=== PATIENT | female | born 1965 | race Hispanic/Latino ===

== ENCOUNTER → 2018-08-26 | Day surgery (SDC) | payer BC ==
[~2018-08-26] MED LIST: FENTANYL CITRATE/PF 100MCG/2 ML INJ ONE; HYOSCYAMINE SULFATE 0.5 MG/ML INJ ONE; MIDAZOLAM HCL 2 MG/2 ML VIAL ONE; PROPOFOL IV EMULSION 10 MG/ML 20 ML VIAL ONE; PROPOFOL IV EMULSION 10 MG/ML 50 ML VIAL ONE; TYLENOL PO
[2018-08-26 16:00] VITALS: BP 125/85
--- NOTE | 2018-08-26 16:01 | Operative Report ---
DATE OF PROCEDURE: 08/26/2018 SURGEON: Pete Mendes MD PROCEDURE: Colonoscopy and polypectomy. REFERRING PHYSICIAN: Dr. Armijo, oncologist at [facility]. INDICATIONS FOR COLONOSCOPY: Colorectal cancer screening, family history of colon cancer. MEDICATIONS: The patient was done under MAC, please see anesthesiologist's note. PROCEDURE IN DETAIL: With the patient in left lateral decubitus position, flexible fiberoptic Olympus colonoscope was inserted into the rectum with ease and advanced all the way to the cecum. The scope was then withdrawn slowly and mucosa overlying the cecum, ascending colon, transverse, descending, and sigmoid other than for scattered diverticular disease appeared to be within normal limits. Three minute polyps were hot biopsied from the rectosigmoid area. The scope was then retroflexed into the distal rectum and small internal hemorrhoids were noted, none of which was actively bleeding. The scope was then straightened out and it was subsequently withdrawn. The patient tolerated procedure well. IMPRESSION: 1. Diverticulosis. 2. Polyps, rectosigmoid area, x3, hot biopsied. 3. Internal hemorrhoids, none actively bleeding. PLAN: Follow up histology. Initiate high-fiber, low-fat diet. Initiate high-fiber supplement. The patient might benefit from a followup colonoscopy in 3 years. Pete Mendes MD [facility] [place] /[id number] cc: Dr. Armijo, Oncology, [facility]
--- OUTSIDE RECORDS SUMMARY | 2018-08-28 15:49 | XMS REPORT ---
Author [facility] Address Unknown Phone Unavailable Care Team Providers Care Recruiting And Selection Consultant Name Role Phone Unavailable Unavailable Problems This patient has no known problems. Allergies, Adverse Reactions, Alerts This patient has no known allergies or adverse reactions. Medications This patient has no known medications. Encounters Start Date/Time End Date/Time Encounter Type Admission Type Attending [facility] Care Department Encounter ID 2018-09-27 00:00:00 Inpatient [facility] [id number] 2018-05-24 09:06:41 Inpatient [facility] [id number] 2017-02-13 20:16:13 Inpatient [facility] [id number] 2017-02-11 12:39:50 Inpatient [facility] [id number] 2017-02-11 11:15:03 Inpatient [facility] [id number] 2017-02-11 07:59:44 Inpatient [facility] [id number] 2017-02-11 05:30:00 Inpatient [facility] [id number] 2017-02-11 00:00:00 Inpatient [facility] [id number] 2017-02-02 00:00:00 Inpatient [facility] [id number] 2018-09-14 00:00:00 2018-09-14 00:00:00 Outpatient [facility] [id number] 2017-05-05 00:00:00 2017-05-05 00:00:00 Outpatient [facility] [id number] 2017-04-20 00:00:00 2017-04-20 00:00:00 Outpatient [facility] [id number] 2017-04-13 00:00:00 2017-04-13 00:00:00 Outpatient [facility] [id number] 2017-04-13 00:00:00 2017-04-13 00:00:00 Outpatient [facility] [id number] 2017-04-08 00:00:00 2017-04-08 00:00:00 Outpatient [facility] [id number] 2017-04-07 00:00:00 2017-04-07 00:00:00 Outpatient [facility] [id number] 2017-03-30 00:00:00 2017-03-30 00:00:00 Outpatient [facility] [id number] 2017-03-23 13:13:42 2017-03-23 13:13:42 Outpatient [facility] [id number] 2017-03-23 10:58:30 2017-03-23 10:58:30 Outpatient [facility] [id number] 2017-03-23 10:06:31 2017-03-23 10:06:31 Outpatient [facility] [id number] 2017-03-23 09:38:58 2017-03-23 09:38:58 Outpatient [facility] [id number] 2017-03-16 10:49:02 2017-03-16 10:49:02 Outpatient [facility] [id number] 2017-03-09 10:38:22 2017-03-09 10:38:22 Outpatient [facility] [id number] 2017-02-28 11:15:38 2017-02-28 11:15:38 Outpatient [facility] [id number] 2017-02-23 12:09:24 2017-02-23 12:09:24 Outpatient [facility] [id number] 2017-02-22 11:14:32 2017-02-22 11:14:32 Outpatient [facility] [id number] 2017-02-02 12:45:56 2017-02-02 12:45:56 Outpatient [facility] [id number] 2017-02-02 10:10:18 2017-02-02 10:10:18 Outpatient [facility] [id number] 2017-01-26 11:34:24 2017-01-26 11:34:24 Outpatient [facility] [id number] 2017-01-19 00:00:00 2017-01-19 00:00:00 Outpatient [facility] [id number] 2017-01-19 00:00:00 2017-01-19 00:00:00 Outpatient [facility] [id number] 2017-01-19 00:00:00 2017-01-19 00:00:00 Outpatient [facility] [id number] 2017-01-17 10:45:13 2017-01-17 10:45:13 Outpatient [facility] [id number] 2017-01-17 10:42:44 2017-01-17 10:42:44 Outpatient [facility] [id number] 2017-01-17 08:43:15 2017-01-17 08:43:15 Outpatient [facility] [id number] 2017-01-12 00:00:00 2017-01-12 00:00:00 Outpatient [facility] [id number] 2017-01-12 00:00:00 2017-01-12 00:00:00 Outpatient [facility] [id number] 2017-01-05 00:00:00 2017-01-05 00:00:00 Outpatient [facility] [id number] 2016-12-27 00:00:00 2016-12-27 00:00:00 Outpatient [facility] [id number] 2016-12-24 00:00:00 2016-12-24 00:00:00 Outpatient [facility] [id number] 2016-12-22 14:10:43 2016-12-22 14:10:43 Outpatient [facility] [id number] 2016-12-22 11:51:52 2016-12-22 11:51:52 Outpatient [facility] [id number] 2016-12-15 15:39:00 2016-12-15 15:39:00 Outpatient [facility] [id number] 2016-12-14 10:47:46 2016-12-14 10:47:46 Outpatient [facility] [id number] 2016-12-14 07:52:36 2016-12-14 07:52:36 Outpatient [facility] [id number] 2016-11-24 12:37:47 2016-11-24 12:37:47 Outpatient [facility] [id number] 2016-11-24 11:50:26 2016-11-24 11:50:26 Outpatient [facility] [id number] 2016-11-18 16:20:00 2016-11-18 16:20:00 Outpatient [facility] [id number] 2016-11-17 16:23:00 2016-11-17 16:23:00 Outpatient [facility] [id number] 2016-11-16 16:13:00 2016-11-16 16:13:00 Outpatient [facility] [id number] 2016-11-16 15:27:00 2016-11-16 15:27:00 Outpatient [facility] [id number] 2016-11-15 16:24:00 2016-11-15 16:24:00 Outpatient [facility] [id number] 2016-11-12 16:47:00 2016-11-12 16:47:00 Outpatient [facility] [id number] 2016-11-12 15:35:00 2016-11-12 15:35:00 Outpatient [facility] [id number] 2016-11-11 16:24:00 2016-11-11 16:24:00 Outpatient [facility] [id number] 2016-11-10 15:34:00 2016-11-10 15:34:00 Outpatient [facility] [id number] 2016-11-10 00:00:00 2016-11-10 00:00:00 Outpatient [facility] [id number] 2016-11-08 18:31:00 2016-11-08 18:31:00 Outpatient [facility] [id number] 2016-11-05 07:22:00 2016-11-05 07:22:00 Outpatient [facility] [id number] 2016-11-04 16:43:00 2016-11-04 16:43:00 Outpatient [facility] [id number] 2016-11-03 16:54:00 2016-11-03 16:54:00 Outpatient [facility] [id number] 2016-11-02 16:10:00 2016-11-02 16:10:00 Outpatient [facility] [id number] 2016-11-02 15:43:00 2016-11-02 15:43:00 Outpatient [facility] [id number] 2016-11-01 17:48:00 2016-11-01 17:48:00 Outpatient [facility] [id number] 2016-10-29 18:32:00 2016-10-29 18:32:00 Outpatient [facility] [id number] 2016-10-28 18:39:00 2016-10-28 18:39:00 Outpatient [facility] [id number] 2016-10-27 19:19:00 2016-10-27 19:19:00 Outpatient [facility] [id number] 2016-10-26 13:47:00 2016-10-26 13:47:00 Outpatient [facility] [id number] 2016-10-26 13:22:00 2016-10-26 13:22:00 Outpatient [facility] [id number] 2016-10-25 15:16:00 2016-10-25 15:16:00 Outpatient [facility] [id number] 2016-10-25 13:26:00 2016-10-25 13:26:00 [facility] [id number] 2016-10-13 09:55:51 2016-10-13 09:55:51 [facility] [id number] 2016-10-08 11:27:00 2016-10-08 11:27:00 Outpatient [facility] [id number] 2016-10-08 09:09:00 2016-10-08 09:09:00 Outpatient [facility] [id number] 2016-10-06 12:54:00 2016-10-06 12:54:00 Outpatient [facility] [id number] 2016-09-29 10:04:28 2016-09-29 10:04:28 Outpatient [facility] [id number] 2016-09-29 07:11:11 2016-09-29 07:11:11 Outpatient [facility] [id number] 2016-08-18 00:00:00 2016-08-18 00:00:00 Outpatient [facility] [id number]
--- OUTSIDE RECORDS SUMMARY | 2018-08-28 15:49 | XMS REPORT | Clinical Summary ---
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 Active simethicone (MYLICON) 80 Take 1-2 30 tablet 1 mg chewable tablets every 7 tabletIndications: 6 hours as Abdominal cramping needed for abdominal cramps or gas.. Active fluticasone (FLONASE) 50 Use 1 [place] 16 g 1 mcg/actuation nasal in each 7 sprayIndications: nostril Seasonal allergic daily. rhinitis, unspecified allergic rhinitis trigger Active 1 mL diphenhydrAMINE Take 5 mL by 250 mL 1 syrup-1 mL lidocaine mouth 4 times 7 mucosal solution-1 mL daily. nystatin oral suspension (Compounded oral at [facility]) s: DLBCL (diffuse large B cell lymphoma) Active acetaminophen (TYLENOL) Take 650 mg 0 325 mg tablet by mouth every 6 hours as needed for Pain. Active acetaminophen-codeine Take 1 tablet 60 tablet 0 (TYLENOL/CODEINE #3) by mouth 7 300-30 mg per every 4 hours tabletIndications: Acute as needed for pain of right knee, DLBCL Pain. (diffuse large B cell lymphoma) Active aspirin 325 mg tablet Take 1 tablet 0 by mouth 2 7 times daily. Active HYDROcodone-acetaminophen Take 1 tablet 45 tablet 0 (NORCO) 7.5-325 mg tablet by mouth 7 every 6 hours as needed for Pain. Active traMADol (ULTRAM) 50 mg Take 1 tablet 30 tablet 0 tabletIndications: by mouth 7 Pathological fracture of every 6 hours right femur due to as needed for neoplastic disease with Pain. routine healing, subsequent encounter 02/17/2018 dexlansoprazole Take 1 30 capsule 1 (DEXILANT) 30 mg delayed capsule by 8 release mouth daily capsuleIndications: for 44 days Dyspepsia Please take only after you submit your stool sample.. Active Problems Problem Noted Date Chronic pain of right knee 02/22/2017 Impaired mobility and ADLs 02/22/2017 Pathologic fracture of femur 02/11/2017 S/P total knee arthroplasty 02/11/2017 Pathologic fracture 01/17/2017 Overview: Added automatically from request for surgery [id number] Pain in right femur 09/02/2016 Neutropenic fever 08/12/2016 Adult BMI > 30 07/14/2016 Overweight (BMI 25.0-29.9) 07/14/2016 DVT prophylaxis 05/30/2016 DLBCL (diffuse large B cell lymphoma) 02/25/2016 Cancer Staging: Clinical stage from 02/25/2016: Stage IV (E - Extranodal) - Signed by Jennifer Hamilton MD on 02/25/2016 Overview: Diagnosis: Stage IV DLBCL with extranodal involvement of right femur, GCB type (BCL2+, BCL6+), no myc-c rearrangement Date of Diagnosis: 02/10/16 Current Treatment: None Language Spoken: Nauruan ONCOLOGIC HISTORY: - 09/2015: developed pain in her right knee that progressed with swelling over several months - 01/07/16: Fell at work and MRI of right knee ordered under workman's comp showed ill-defined lesion involving the right distal femur metaphysis suspicious for malignancy. She was referred to [facility] Suspicion of Cancer clinic. - 01/09/16: Xray right hip/femur- No acute fracture or malalignment in the right hip, femur or knee.Tiny lytic lesions in the distal femoral shaft in a permeative pattern with mild periosteal reaction at the mid and distal femur are concerning for malignancy. Small right knee joint effusion. - 01/21/16: Quantiferon gold positive - 01/28/16: CXR negative - 02/10/16: Bone biopsy showed diffuse large B-cell lymphoma with high proliferation index (Ki 67 90-95%). tumor cells are positive for CD20, CD79a, CD10 (subset), Bcl-6, Bcl-2, and they are negative for CD3, CD21, CD43, CD34, CD138, MUM-1, E-cadherin, MPO, cyclin D1. Currie and Lambda IHC is positive in scattered cells and polytypic. IGH/BCL2 translocation was detected on FISH. No evidence of an IGH/MYC translocation - 02/12/16: MRI right femur which showed a large mass (measuring 8.9 x 9.1 x 24.5 cm) with necrosis and hemorrhage involving entire femoral shaft from proximal 1/3 of femoral diaphysis to femoral condyles with progression of cortical breakthrough and muscle invasion adductor giuliano muscle and questionably within the short head of the biceps femoris. - 02/24/16: PET CT showed hypermetabolic subcm right inguinal and iliac chain lymph node (max SUV 7.1), mesocolic LN, and right femoral LN 2.1 cm with SUV 22.8. as well as right distal femoral FDG avid lesion with cortical breakthrough and surrounding FDG avid soft tissue component has SUV max 37.5. - 02/25/16: LDH 370, uric acid 4.7, HIV negative - 02/27/16: ECHO EF 60-64% - 03/03/16: D1C1 DA-R-EPOCH; tolerated well Right knee pain 01/21/2016 (QFT) QuantiFERON-TB test reaction without active tuberculosis No contraindication to deep vein thrombosis (DVT) prophylaxis Lytic bone lesions on xray TB lung, latent Cancer related pain Drug-induced polyneuropathy Cough Allergic rhinitis Right ear pain Pancytopenia Pathological fracture of right femur in neoplastic disease Post-op pain Encounters Care Team Description Date Type Specialty Christian Armijo, Fellow() Diffuse large B-cell lymphoma, unspecified body region (Primary Dx) 05/24/2018 Office Visit Oncology Christian Armijo, Fellow() Diffuse large B-cell lymphoma, unspecified body region 05/19/2018 Hospital Radiology Encounter 05/19/2018 Travel Christian Armijo, Fellow() Diffuse large B-cell lymphoma, unspecified body region 05/05/2018 Hospital Lab Encounter 05/05/2018 Travel Lorena Vaughn PA Pathological fracture of right femur due to neoplastic disease with malunion, subsequent encounter; Status post total right knee replacement 02/20/2018 Hospital Radiology Encounter Renny Yanes MD Pathological fracture of right femur due to neoplastic disease with malunion, subsequent encounter (Primary Dx); Status post total right knee replacement 02/20/2018 Office Visit Orthopedics Lorena Vaughn PA Left without seen 01/25/2018 Hospital Lab Encounter Bertha Ron, Fellow() Diffuse large B-cell lymphoma of lymph nodes of lower extremity 01/25/2018 Orders Only Oncology Hugo Oconnor MD Dyspepsia (Primary Dx) 01/04/2018 Office Visit Gastroenterology Bertha Ron, Fellow() Christian Armijo Fellow() Diffuse large B-cell lymphoma, unspecified body region (Primary Dx) 11/16/2017 Office Visit Oncology Bertha Ron, Fellow() Diffuse large B-cell lymphoma of lymph nodes of lower extremity 11/02/2017 Hospital Radiology Encounter Bertha Ron, Fellow() Diffuse large B-cell lymphoma of lymph nodes of lower extremity 10/10/2017 Hospital Lab Encounter Lorena Vaughn PA 08/31/2017 Ancillary Radiology Procedure after 08/27/2017 Immunizations Name Dates Previously Given Next Due Influenza <Unspecified> 02/21/2017 Influenza Vaccine 07/31/2016 (Deferred: Patient Refused) Pegfilgrastim (Neulasta) 03/09/2016 Injection Pneumococcal 13-valent 07/31/2016 (Deferred: Patient Refused) conj 0.5 mL injection Family History Medical History Relation Name Comments Breast cancer Brother Colon cancer Other cousin Breast cancer Paternal Aunt age 40 Breast cancer Paternal Aunt age 50 Breast cancer Sister age 28 Breast cancer Sister age 31 Relation Name Status Comments Brother Other cousin Paternal Aunt age 40 Alive Paternal Aunt age 50 Sister age 28 Sister age 31 Social History Date Tobacco Use Types Packs/Day Years Used Never Smoker Smokeless Tobacco: Never Used Tobacco Cessation: Counseling Given: Yes Alcohol Use Drinks/Week oz/Week Comments No Sex Assigned at Date Recorded Not on file Industry Job Start Date Occupation Not on file Not on file Not on file Travel End Travel History Travel Start No recent travel history available. Last Filed Vital Signs Time Taken Vital Sign Reading 05/24/2018 9:24 AM CONTENT STRATEGIST Blood Pressure 124/75 05/24/2018 9:24 AM CONTENT STRATEGIST Pulse 85 05/24/2018 9:24 AM CONTENT STRATEGIST Temperature 36.6 C (97.8 F) 05/24/2018 9:24 AM CONTENT STRATEGIST Respiratory Rate 18 - Oxygen Saturation - - Inhaled Oxygen - Concentration 05/24/2018 9:24 AM CONTENT STRATEGIST Weight 110.7 kg (244 lb) 05/24/2018 9:24 AM CONTENT STRATEGIST Height 161.5 cm (5' 3.6") 05/24/2018 9:24 AM CONTENT STRATEGIST Body Mass Index 42.41 Plan of Treatment Care Team Description Date Type Specialty referral#[id number]..BCBS 09/14/2018 Office Visit Pulmonology Christian Armijo, Fellow() [address] [id number] 09/27/2018 Office Visit Oncology Health Maintenance Due Date Last Done Comments Cervical Cancer Scrn (3 07/21/2018 07/22/2015 (Previously completed - Yrs) External) Colorectal Cancer Scrn 07/25/2018 07/25/2017 Annual (FIT/FOBT) Age 50 to 75 Breast Cancer Scrn 08/31/2018 08/31/2017 (Yearly) IMM Influenza Seasonal 02/06/2019 02/21/2017Feb to July (>/=19 yrs) Implants Device Identifier Shelf Expiration Date Model / Serial / Lot Implanted Type Area Manufactur er 02/02/2021 [id number] / / [id number] Port-A-Cath Ii Power P.A.C. Low Chest Profile Implanted: Qty: 1 on 07/19/2016 by Hanny Haddad MD 12/30/2021 6495-2-020 / / [id number] [employer] Distal Femoral Component Right: Femur(s) ELANA Implanted: Qty: 1 on 02/11/2017 by Mega Oliver Sr., MD CS - DIV STR 01/16/2021 6495-6-040 / / [id number] Gm[employer] Extension Piece Right: Femur(s) ELANA Implanted: Qty: 1 on 02/11/2017 by Mega Oliver Sr. CS - DIV STR 06/29/2021 6481-2-140 / / [id number] [facility] Knee Tibial Sleeve Right: Femur(s) ELANA Implanted: Qty: 1 on 02/11/2017 by Mega Oliver Sr., MD CS - DIV STR 09/03/2021 6481-2-100 / / [id number] [facility] Tibial Rotating Component Right: Femur(s) ELANA Implanted: Qty: 1 on 02/11/2017 by Mega Oliver Sr., MD CS - DIV STR 10/14/2021 6485-3-113 / / [id number] Mrs Straight Cemented Stem Right: Femur(s) ELANA Implanted: Qty: 1 on 02/11/2017 by Mega Oliver Sr., MD CS - DIV STR 02/05/2018 [id number] / / [id number] Simplex P With Tobramycin Right: Femur(s) ELANA Antibiotic Bone Cement ORTHOPAEDI Implanted: Qty: 1 on 02/11/2017 by CS - DIV Mega Ordaz Sr., MD STR 10/07/2021 6495-2-105 / / [id number] [place] For Small Distal Femur Right: Femur(s) ELANA Implanted: Qty: 2 on 02/11/2017 by Mega Oliver Sr., MD CS - DIV STR 12/19/2021 6481-3-111 / / [id number] [facility] Knee Tibial Baseplate Right: Femur(s) ELANA Implanted: Qty: 1 on 02/11/2017 by Mega Oliver Sr., MD CS - DIV STR 12/14/2021 6481-3-210 / / [id number] [facility] Knee Tibial Insert Right: Femur(s) ELANA Implanted: Qty: 1 on 02/11/2017 by Mega Oliver Sr., MD CS - DIV STR 07/01/2021 6478-6-405 / / [id number] Joaquin Chrome Sten Right: Femur(s) ELANA Implanted: Qty: 1 on 02/11/2017 by Mega Oliver Sr., MD CS - DIV STR 06/22/2021 [id number] / / [id number] Tri[employer]lon X3 Asymmetric Patella Right: Femur(s) ELANA Implanted: Qty: 1 on 02/11/2017 by Mega Oliver Sr., MD CS - DIV STR 11/16/2021 6495-2-115 / / [id number] [employer] Axle Right: Femur(s) ELANA Implanted: Qty: 1 on 02/11/2017 by Mega Oliver Sr., MD CS - DIV STR 06/30/2021 6481-2-130 / / [id number] [facility] Knee Bumper Insert Right: Femur(s) ELANA Implanted: Qty: 1 on 02/11/2017 by Mega Oliver Sr., CS - DIV STR Procedures Comments Procedure Name Priority Date/Time Associated Diagnosis CT ABDOMEN AND PELVIS Today 05/19/2018 Diffuse large B-cell CONTRAST 5:28 PM CONTENT STRATEGIST lymphoma, unspecified body region CT CHEST W CONTRAST Today 05/19/2018 Diffuse large B-cell 5:28 PM CONTENT STRATEGIST lymphoma, unspecified body region LIVER PROFILE Routine 05/05/2018 Diffuse large B-cell 3:46 PM CONTENT STRATEGIST lymphoma, unspecified body region BASIC METABOLIC PANEL Routine 05/05/2018 Diffuse large B-cell 3:46 PM CONTENT STRATEGIST lymphoma, unspecified body region CBC/DIFF Routine 05/05/2018 Diffuse large B-cell 3:46 PM CONTENT STRATEGIST lymphoma, unspecified body region XRAY KNEE 4 OR MORE VIEWS Routine 02/20/2018 Pathological fracture of (ROUTINE W/ WT BEARIN:30 PM CDT right femur due to AP/PA/LAT/SUN) neoplastic disease with malunion, subsequent encounter Status post total right knee replacement XRAY FEMUR 2 VIEWS Routine 02/20/2018 Pathological fracture of 3:30 PM CDT right femur due to neoplastic disease with malunion, subsequent encounter Status post total right knee replacement H. PYLORI STOOL AG Routine 01/25/2018 2:[address] ABDOMEN AND PELVIS Routine 11/02/2017 Diffuse large B-cell CONTRAST 10:49 AM CDT lymphoma of lymph nodes of lower extremity CT CHEST W CONTRAST Routine 11/02/2017 Diffuse large B-cell 10:49 AM CDT lymphoma of lymph nodes of lower extremity BASIC METABOLIC PANEL Routine 10/10/2017 Diffuse large B-cell 8:21 AM CDT lymphoma of lymph nodes of lower extremity MAMMOGRAM BILAT SCREEN Routine 08/31/2017 Breast cancer screening DIGITAL 4:33 PM CDT after 08/27/2017 Results * CT ABDOMEN AND PELVIS CONTRAST (05/19/2018 5:28 PM CONTENT STRATEGIST) Only the most recent of 2 results within the time period is included. Addenda Addendum by Luigi Hernandez MD on 05/22/2018 11:46 AM Addendum 05/12/2018 at 1145 hours. Impression: 5. Dilated thecal sac at the level of the sacrum consistent with dural ectasia, a non specific finding. Signed By: Luigi Hernandez MD, 05/22/2018 11:46 AM Impressions Performed At IMPRESSION: SMS 1.2 right stable inguinal lymph nodes measuring up to 1 cm. The larger 1 cm lymph node previously demonstrated FDG uptake on the PET/CT from 04/13/2017. 2.Multiple scattered bilateral pulmonary nodules all of which are stable. Continued follow-up. 3.Stable right thyroid hypodense nodule. 4.Stable small left adrenal nodule. Signed By: Luigi Hernandez MD, 05/22/2018 10:43 AM Narrative Performed At EXAM: CT CHEST WITH CONTRAST [facility] EXAM: CT ABDOMEN AND PELVIS WITH CONTRAST DATE: 05/19/2018 5:30 PM INDICATION: History of DLBCL. Diffuse large B-cell lymphoma, unspecified body region ADDITIONAL INFORMATION: None. COMPARISON: CT chest abdomen pelvis 10/27/2017. TECHNIQUE: Chest ,abdomen and pelvis volumetric CT data set was acquired and axial, coronal, and sagittal series were reconstructed. Postcontrast phases: Portal Venous IV contrast: Omnipaque 300, 97 mL Enteric contrast: None. DLP:2028 mGy cm FINDINGS: Lines, tubes and hardware: None. Lower neck:There is a stable right inferior pole thyroid hypodensity measuring approximately 1.5 x 1.2 cm. No supraclavicular adenopathy is seen. Axilla: Clear. Airway: Patent. Lungs and pleura: 1. Right upper lobe subpleural 0.2 cm nodule, series 405, image 32 stable. 2. Right upper lobe peripheral 0.2 cm nodule on series 405, image 57. Stable. 3. 0.2 cm subpleural right lower lobe nodule that is stable since the prior study, series 405, image 67. 4. Subpleural 0.3 cm nodule, series 45 image 72 that is stable. 5. Right lower lobe posterior medial 0.2 cm stable nodule series 405, image 72. 6. Left lower lobe subpleural 0.3 cm pulmonary nodule that is stable. 7. Left lower lobe posterior medial 0.3 cm nodule series 405, image 62 that is stable. 8. 2 subpleural left lower lobe nodules that are stable measuring 0.2-0.3 cm. Mediastinum, aretha and intrathoracic lymph nodes: Normal. Heart, pericardium and great vessels: Unremarkable. Liver: Measures 17.6 cm in length and is mildly enlarged. Biliary tree: No intra- or extrahepatic biliary ductal dilation. Gallbladder: Surgically absent. Pancreas: Normal. Spleen: Normal. Adrenals: Right adrenal is normal. There is a small 0.8 cm left adrenal nodule.. Kidneys and ureters: Right renal superior pole 1.4 cm well-circumscribed fluid density stable cyst. The left kidney is normal. Bladder: Normal. Reproductive Tract: Normal. Gastrointestinal tract: Stomach: Normal. Small bowel: Normal. Colon: Normal. Appendix: Normal. Peritoneum, mesentery and retroperitoneum: No free air, ascites, loculated fluid or masses. Lymph nodes: 2 right stable when lymph nodes, the larger one measuring up to 1 cm. Arteries: Aorta, common iliac, mesenteric arteries are patent. Veins: Unremarkable. Portal Vein:Patent... Bones: No acute abnormality. There is dural ectasia of the sacrum from S1-S1 secondary to fluid density 6.1 x 2.0 cm structure. Soft tissues:There is a small fat-containing umbilical hernia of uncertain clinical significance. Procedure Note Interface, Rad/Mammog In - 05/22/2018 10:48 AM CONTENT STRATEGIST EXAM: CT CHEST WITH CONTRAST EXAM: CT ABDOMEN AND PELVIS WITH CONTRAST DATE: 05/19/2018 5:30 PM INDICATION: History of DLBCL. Diffuse large B-cell lymphoma, unspecified body region ADDITIONAL INFORMATION: None. COMPARISON: CT chest abdomen pelvis 10/27/2017. TECHNIQUE: Chest ,abdomen and pelvis volumetric CT data set was acquired and axial, coronal, and sagittal series were reconstructed. Postcontrast phases: Portal Venous IV contrast: Omnipaque 300, 97 mL Enteric contrast: None. DLP: 2028 mGy cm FINDINGS: Lines, tubes and hardware: None. Lower neck: There is a stable right inferior pole thyroid hypodensity measuring approximately 1.5 x 1.2 cm. No supraclavicular adenopathy is seen. Axilla: Clear. Airway: Patent. Lungs and pleura: 1. Right upper lobe subpleural 0.2 cm nodule, series 405, image 32 stable. 2. Right upper lobe peripheral 0.2 cm nodule on series 405, image 57. Stable. 3. 0.2 cm subpleural right lower lobe nodule that is stable since the prior study, series 405, image 67. 4. Subpleural 0.3 cm nodule, series 45 image 72 that is stable. 5. Right lower lobe posterior medial 0.2 cm stable nodule series 405, image 72. 6. Left lower lobe subpleural 0.3 cm pulmonary nodule that is stable. 7. Left lower lobe posterior medial 0.3 cm nodule series 405, image 62 that is stable. 8. 2 subpleural left lower lobe nodules that are stable measuring 0.2-0.3 cm. Mediastinum, aretha and intrathoracic lymph nodes: Normal. Heart, pericardium and great vessels: Unremarkable. Liver: Measures 17.6 cm in length and is mildly enlarged. Biliary tree: No intra- or extrahepatic biliary ductal dilation. Gallbladder: Surgically absent. Pancreas: Normal. Spleen: Normal. Adrenals: Right adrenal is normal. There is a small 0.8 cm left adrenal nodule.. Kidneys and ureters: Right renal superior pole 1.4 cm well-circumscribed fluid density stable cyst. The left kidney is normal. Bladder: Normal. Reproductive Tract: Normal. Gastrointestinal tract: Stomach: Normal. Small bowel: Normal. Colon: Normal. Appendix: Normal. Peritoneum, mesentery and retroperitoneum: No free air, ascites, loculated fluid or masses. Lymph nodes: 2 right stable when lymph nodes, the larger one measuring up to 1 cm. Arteries: Aorta, common iliac, mesenteric arteries are patent. Veins: Unremarkable. Portal Vein: Patent... Bones: No acute abnormality. There is dural ectasia of the sacrum from S1-S1 secondary to fluid density 6.1 x 2.0 cm structure. Soft tissues: There is a small fat-containing umbilical hernia of uncertain clinical significance. IMPRESSION IMPRESSION: 1. 2 right stable inguinal lymph nodes measuring up to 1 cm. The larger 1 cm lymph node previously demonstrated FDG uptake on the PET/CT from 04/13/2017. 2. Multiple scattered bilateral pulmonary nodules all of which are stable. Continued follow-up. 3. Stable right thyroid hypodense nodule. 4. Stable small left adrenal nodule. Signed By: Luigi Hernandez MD, 05/22/2018 10:43 AM Performing Organization Address City/State/Zipcode Phone Number SMS * CT CHEST W CONTRAST (05/19/2018 5:28 PM CONTENT STRATEGIST) Only the most recent of 2 results within the time period is included. Addenda Addendum by Luigi Hernandez MD on 05/22/2018 11:46 AM Addendum 05/12/2018 at 1145 hours. Impression: 5. Dilated thecal sac at the level of the sacrum consistent with dural ectasia, a non specific finding. Signed By: Luigi Hernandez MD, 05/22/2018 11:46 AM Impressions Performed At IMPRESSION: SMS 1.2 right stable inguinal lymph nodes measuring up to 1 cm. The larger 1 cm lymph node previously demonstrated FDG uptake on the PET/CT from 04/13/2017. 2.Multiple scattered bilateral pulmonary nodules all of which are stable. Continued follow-up. 3.Stable right thyroid hypodense nodule. 4.Stable small left adrenal nodule. Signed By: Luigi Hernandez MD, 05/22/2018 10:43 AM Narrative Performed At EXAM: CT CHEST WITH CONTRAST [facility] EXAM: CT ABDOMEN AND PELVIS WITH CONTRAST DATE: 05/19/2018 5:30 PM INDICATION: History of DLBCL. Diffuse large B-cell lymphoma, unspecified body region ADDITIONAL INFORMATION: None. COMPARISON: CT chest abdomen pelvis 10/27/2017. TECHNIQUE: Chest ,abdomen and pelvis volumetric CT data set was acquired and axial, coronal, and sagittal series were reconstructed. Postcontrast phases: Portal Venous IV contrast: Omnipaque 300, 97 mL Enteric contrast: None. DLP:2028 mGy cm FINDINGS: Lines, tubes and hardware: None. Lower neck:There is a stable right inferior pole thyroid hypodensity measuring approximately 1.5 x 1.2 cm. No supraclavicular adenopathy is seen. Axilla: Clear. Airway: Patent. Lungs and pleura: 1. Right upper lobe subpleural 0.2 cm nodule, series 405, image 32 stable. 2. Right upper lobe peripheral 0.2 cm nodule on series 405, image 57. Stable. 3. 0.2 cm subpleural right lower lobe nodule that is stable since the prior study, series 405, image 67. 4. Subpleural 0.3 cm nodule, series 45 image 72 that is stable. 5. Right lower lobe posterior medial 0.2 cm stable nodule series 405, image 72. 6. Left lower lobe subpleural 0.3 cm pulmonary nodule that is stable. 7. Left lower lobe posterior medial 0.3 cm nodule series 405, image 62 that is stable. 8. 2 subpleural left lower lobe nodules that are stable measuring 0.2-0.3 cm. Mediastinum, aretha and intrathoracic lymph nodes: Normal. Heart, pericardium and great vessels: Unremarkable. Liver: Measures 17.6 cm in length and is mildly enlarged. Biliary tree: No intra- or extrahepatic biliary ductal dilation. Gallbladder: Surgically absent. Pancreas: Normal. Spleen: Normal. Adrenals: Right adrenal is normal. There is a small 0.8 cm left adrenal nodule.. Kidneys and ureters: Right renal superior pole 1.4 cm well-circumscribed fluid density stable cyst. The left kidney is normal. Bladder: Normal. Reproductive Tract: Normal. Gastrointestinal tract: Stomach: Normal. Small bowel: Normal. Colon: Normal. Appendix: Normal. Peritoneum, mesentery and retroperitoneum: No free air, ascites, loculated fluid or masses. Lymph nodes: 2 right stable when lymph nodes, the larger one measuring up to 1 cm. Arteries: Aorta, common iliac, mesenteric arteries are patent. Veins: Unremarkable. Portal Vein:Patent... Bones: No acute abnormality. There is dural ectasia of the sacrum from S1-S1 secondary to fluid density 6.1 x 2.0 cm structure. Soft tissues:There is a small fat-containing umbilical hernia of uncertain clinical significance. Procedure Note Interface, Rad/Mammog In - 05/22/2018 10:48 AM CONTENT STRATEGIST EXAM: CT CHEST WITH CONTRAST EXAM: CT ABDOMEN AND PELVIS WITH CONTRAST DATE: 05/19/2018 5:30 PM INDICATION: History of DLBCL. Diffuse large B-cell lymphoma, unspecified body region ADDITIONAL INFORMATION: None. COMPARISON: CT chest abdomen pelvis 10/27/2017. TECHNIQUE: Chest ,abdomen and pelvis volumetric CT data set was acquired and axial, coronal, and sagittal series were reconstructed. Postcontrast phases: Portal Venous IV contrast: Omnipaque 300, 97 mL Enteric contrast: None. DLP: 2028 mGy cm FINDINGS: Lines, tubes and hardware: None. Lower neck: There is a stable right inferior pole thyroid hypodensity measuring approximately 1.5 x 1.2 cm. No supraclavicular adenopathy is seen. Axilla: Clear. Airway: Patent. Lungs and pleura: 1. Right upper lobe subpleural 0.2 cm nodule, series 405, image 32 stable. 2. Right upper lobe peripheral 0.2 cm nodule on series 405, image 57. Stable. 3. 0.2 cm subpleural right lower lobe nodule that is stable since the prior study, series 405, image 67. 4. Subpleural 0.3 cm nodule, series 45 image 72 that is stable. 5. Right lower lobe posterior medial 0.2 cm stable nodule series 405, image 72. 6. Left lower lobe subpleural 0.3 cm pulmonary nodule that is stable. 7. Left lower lobe posterior medial 0.3 cm nodule series 405, image 62 that is stable. 8. 2 subpleural left lower lobe nodules that are stable measuring 0.2-0.3 cm. Mediastinum, aretha and intrathoracic lymph nodes: Normal. Heart, pericardium and great vessels: Unremarkable. Liver: Measures 17.6 cm in length and is mildly enlarged. Biliary tree: No intra- or extrahepatic biliary ductal dilation. Gallbladder: Surgically absent. Pancreas: Normal. Spleen: Normal. Adrenals: Right adrenal is normal. There is a small 0.8 cm left adrenal nodule.. Kidneys and ureters: Right renal superior pole 1.4 cm well-circumscribed fluid density stable cyst. The left kidney is normal. Bladder: Normal. Reproductive Tract: Normal. Gastrointestinal tract: Stomach: Normal. Small bowel: Normal. Colon: Normal. Appendix: Normal. Peritoneum, mesentery and retroperitoneum: No free air, ascites, loculated fluid or masses. Lymph nodes: 2 right stable when lymph nodes, the larger one measuring up to 1 cm. Arteries: Aorta, common iliac, mesenteric arteries are patent. Veins: Unremarkable. Portal Vein: Patent... Bones: No acute abnormality. There is dural ectasia of the sacrum from S1-S1 secondary to fluid density 6.1 x 2.0 cm structure. Soft tissues: There is a small fat-containing umbilical hernia of uncertain clinical significance. IMPRESSION IMPRESSION: 1. 2 right stable inguinal lymph nodes measuring up to 1 cm. The larger 1 cm lymph node previously demonstrated FDG uptake on the PET/CT from 04/13/2017. 2. Multiple scattered bilateral pulmonary nodules all of which are stable. Continued follow-up. 3. Stable right thyroid hypodense nodule. 4. Stable small left adrenal nodule. Signed By: Luigi Hernandez MD, 05/22/2018 10:43 AM Performing Organization Address [facility]/[employer] Phone Number SMS * LIVER PROFILE (05/05/2018 3:46 PM CONTENT STRATEGIST) T Protein 7.7 6.0 - 8.3 g/dL [facility] 1 Albumin 4.6 3.7 - 5.3 g/dL [facility] 1 T Bilirubin 0.5 0.2 - 1.2 mg/dL [facility] 1 Alk Phos 130 (H) 34 - 104 U/L [facility] 1 AST 24 13 - 39 U/L [facility] 1 ALT 23 7 - 52 U/L [facility] 1 D Bilirubin 0.1 0.0 - 0.2 mg/dL [facility] 1 Specimen Blood Performing Organization Address [facility]/[employer] Phone Number MISYS [facility] 1 * CBC/DIFF (05/05/2018 3:46 PM CONTENT STRATEGIST) WBC 6.5 4.5 - 11.0 K/uL [facility] 2 RBC 4.44 4.20 - 5.40 M/uL [facility] 2 Hemoglobin 13.3 12.0 - 16.0 g/dL [facility] 2 Hematocrit 39.0 37.0 - 47.0 % [facility] 2 MCV 88 82 - 92 fL [facility] 2 MCH 30.0 27.0 - 32.0 pg [facility] 2 MCHC 34.1 32.0 - 36.0 g/dL [facility] 2 RDW 43.0 36.4 - 46.3 fL [facility] 2 Platelet 254 150 - 400 K/uL [facility] 2 Mean Platelet 9.4 9.4 - 12.4 fL [facility] Volume [facility] 2 Percent NRBC 0.0 [facility] 2 Absolute NRBC 0.00 [facility] 2 Neutrophil 59.3 34.0 - 70.0 % [facility] 2 Lymphocyte 31.8 20.0 - 50.0 % [facility] 2 Monocyte 6.0 5.0 - 12.0 % [facility] 2 Eosinophil 1.8 0.7 - 5.0 % [facility] 2 Basophil 0.6 0.1 - 1.2 % [facility] 2 Pct Immat Gran 0.5 0.0 - 0.5 [facility] 2 Neutrophil, Abs 3.85 1.56 - 6.13 K/uL [facility] 2 Lymphocyte, Abs 2.07 1.18 - 3.74 K/uL [facility] 2 Monocyte, Abs 0.39 (H) 0.24 - 0.36 K/uL [facility] 2 Eosinophil, Abs 0.12 0.04 - 0.36 K/uL [facility] 2 Basophil, Abs 0.04 0.01 - 0.08 K/uL [facility] 2 Absol Immat 0.03 0.00 - 0.03 K/uL [facility] Gran [facility] 2 Specimen Blood Performing Organization Address City/State/Zipcode Phone Number MISYS [facility] 2 * BASIC METABOLIC PANEL (05/05/2018 3:46 PM CONTENT STRATEGIST) Only the most recent of 2 results within the time period is included. CO2 30 21 - 31 mmol/L [facility] 1 Chloride 103 98 - 107 mmol/L [facility] 1 Potassium 4.8 3.5 - 5.1 mmol/L [facility] 1 Sodium 139 136 - 145 mmol/L [facility] 1 Glucose 94 70 - 110 mg/dL [facility] 1 Urea Nitrogen 18 7 - 25 mg/dL [facility] 1 Creatinine 0.60 0.6 - 1.2 mg/dL [facility] 1 Anion Gap 6 [facility] 1 Calcium 9.9 8.6 - 10.3 mg/dL [facility] 1 GFR, Estimated >60 mL/min/1.73 m2 [facility] 1 GFR, Estim, >60 mL/min/1.73 m2 [facility] Afr-Am [facility] 1 Specimen Blood Performing Organization Address [facility] Phone Number MISYS [facility] 1 * XRAY FEMUR 2 VIEWS (02/20/2018 3:30 PM CDT) Impressions Performed At IMPRESSION: SMS 1. 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 Signed By: Sacha Dela Cruz MD, 02/20/2018 3:30 PM Narrative Performed At EXAM: XR RIGHT FEMUR 2 VIEWS [facility] DATE:02/20/2018 3:03 PM INDICATION: R TKA COMPARISON: Radiograph dated 03/23/2017 TECHNIQUE:AP and lateral femur radiographs DISCUSSION: Hinged total knee arthroplasty hardware shows good alignment without complications. Right hip is intact. No soft tissue abnormality is identified. Procedure Note Interface, Rad/Mammog In - 02/20/2018 3:35 PM CDT EXAM: XR RIGHT FEMUR 2 VIEWS DATE: 02/20/2018 3:03 PM INDICATION: R TKA COMPARISON: Radiograph dated 03/23/2017 TECHNIQUE: AP and lateral femur radiographs DISCUSSION: Hinged total knee arthroplasty hardware shows good alignment without complications. Right hip is intact. No soft tissue abnormality is identified. IMPRESSION IMPRESSION: 1. 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 Signed By: Sacha Dela Cruz MD, 02/20/2018 3:30 PM Performing Organization Address [facility] Phone Number SMS * XRAY KNEE 4 OR MORE VIEWS (ROUTINE W/ WT BEARING: AP/PA/LAT/SUN) (02/20/2018 3:30 PM CDT) Impressions Performed At IMPRESSION: SMS 1.No hardware complications across the hinged total knee replacement. Dictated By: Rupesh Bautista MD, 02/20/2018 3:39 PM I have reviewed the study and agree with the findings in this report. Signed By: Sacha Dela Cruz MD, 02/20/2018 3:54 PM Narrative Performed At EXAM: XR RIGHT KNEE 4 VIEWS SMS DATE:02/20/2018 3:30 PM INDICATION: R TKA. 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 No hardware complications or signs of hardware failure Procedure Note Interface, Rad/Mammog In - 02/20/2018 3:59 PM CDT EXAM: XR RIGHT KNEE 4 VIEWS DATE: 02/20/2018 3:30 PM INDICATION: R TKA. 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 No hardware complications or signs of hardware failure IMPRESSION IMPRESSION: 1. No hardware complications across the hinged total knee replacement. Dictated By: Rupesh Bautista MD, 02/20/2018 3:39 PM I have reviewed the study and agree with the findings in this report. Signed By: Sacha Dela Cruz MD, 02/20/2018 3:54 PM Performing Organization Address City/[facility]/Zipcode Phone Number SMS * H. PYLORI STOOL AG (01/25/2018 2:00 PM CDT) H pylori Ag Negative LABORATORY Stool Reference range: Negative [employer] [place] Performing Organization Address City/State/Zipcode Phone Number MD [facility] [address] [facility] [place] [address] [facility] 145 * MAMMOGRAM BILAT SCREEN DIGITAL (08/31/2017 4:33 PM CDT) Impressions Performed At IMPRESSION: BENIGN SMS There is no mammographic evidence of malignancy. A 1 year screening mammogram is recommended. I have reviewed the study and agree with the findings in the report. This document has been electronically signed. Kristine Ayala M.D. apb,fg/penrad:08/31/2017 16:39:13 Assistant County Engineer: Anthony Castellano Sr. Drivematic Machine OperatorNewark [facility] letter sent: Benign Exam Mammogram BI-RADS: 2 Benign G0202 Z85.3 Narrative Performed At #[id number] - MAMMOGRAM BILAT SCREEN DIGITAL SMS BILATERAL DIGITAL SCREENING MAMMOGRAM WITH CAD: 08/31/2017 No prior exams were available for comparison. The tissue of both breasts is predominately fatty. Current study was also evaluated with a Computer Aided Detection (CAD) system. There are benign calcifications in both breasts. No significant masses, calcifications, or other findings are seen in either breast. Procedure Note Interface, Rad/Mammog In - 09/01/2017 8:50 AM CDT #[id number] - MAMMOGRAM BILAT SCREEN DIGITAL BILATERAL DIGITAL SCREENING MAMMOGRAM WITH CAD: 08/31/2017 No prior exams were available for comparison. The tissue of both breasts is predominately fatty. Current study was also evaluated with a Computer Aided Detection (CAD) system. There are benign calcifications in both breasts. No significant masses, calcifications, or other findings are seen in either breast. IMPRESSION IMPRESSION: BENIGN There is no mammographic evidence of malignancy. A 1 year screening mammogram is recommended. I have reviewed the study and agree with the findings in the report. This document has been electronically signed. Kristine davis,fg/penrad:08/31/2017 16:39:13 Assistant County Engineer: Anthony Castellano Sr. Drivematic Machine Operator, [facility] letter sent: Benign Exam Mammogram BI-RADS: 2 Benign G0202 Z85.3 Performing Organization Address City/State/Zipcode Phone Number SMS after 08/27/2017 Insurance Type Payer Benefit Subscriber ID Effective Phone Address Plan / Dates Group BC/BS BC/BS PPO xxxxxxxxxxxx 2018-P [phone] [id number] [place] [id number] Advance Directives For more information, please contact: [address] [address] Date Inactivated Comments Code Status Date Activated 02/14/2017 6:13 PM Full Code 02/11/2017 1:10 PM 08/16/2016 3:12 PM Full Code 08/13/2016 9:39 AM 08/04/2016 8:01 PM Full Code 07/31/2016 6:41 AM 06/28/2016 12:34 PM Full Code 06/24/2016 12:20 AM 06/24/2016 12:20 AM Full Code 06/23/2016 3:02 PM
== END | disposition home or self-care (01) ==
LOC: OR 10:42
PROVIDERS: ATTEND Internal Medicine Gastroenterology
DX: Z12.11 Encounter for screening for malignant neoplasm of colon (principal); K62.1 Rectal polyp; K57.30 Diverticulosis of large intestine without perforation or abscess without bleeding; K64.8 Other hemorrhoids; R19.5 Other fecal abnormalities; E66.01 Morbid (severe) obesity due to excess calories; Z01.810 Encounter for preprocedural cardiovascular examination; Z68.41 Body mass index [BMI] 40.0-44.9, adult; Z92.21 Personal history of antineoplastic chemotherapy; Z85.72 Personal history of non-Hodgkin lymphomas; Z80.0 Family history of malignant neoplasm of digestive organs
CPT/HCPCS: 45384; 93005; J1980; J2250; J2704 ×2